=== PATIENT | female | born 1990 | race African-American/Black ===

== ENCOUNTER 2025-04-12 17:10 | Emergency (ER) | payer BC ==
[~2025-04-12] VITALS: Ht 165.1 cm; Wt 66.2 kg
[2025-04-12] MEDS: KETOROLAC TROMETHAMINE 15 MG/ML VIAL IM ONE (20:00)
[2025-04-12 20:29] LABS: PLATELET COUNT (AUTO) 210 K/uL (150-450); RED BLOOD CELL COUNT(AUTO) 4.43 MIL/uL (4.0-5.2); RED CELL DISTRIBUTION WIDTH 12.1 % (11.5-15.0); WHITE BLOOD COUNT (AUTO) 10.1 K/uL (4.3-11.0)
[2025-04-12 20:32] LABS: CALCIUM, SERUM 8.8 mg/dL (8.5-10.1); CREATININE 0.9 mg/dL (0.6-1.3); SODIUM SERUM 137.0 mmol/L (136-145); UREA NITROGEN, BLOOD 10.0 mg/dL (7-18)
[2025-04-12 20:33] LABS: APPEARANCE,URINE CLEAR (CLEAR); BLOOD, URINE Trace-intact Ery/uL (NEGATIVE); LEUKOCYTE ESTERASE ,URINE Negative (NEGATIVE); UGLUCOSE Negative (NEGATIVE)
[2025-04-12 20:36] LABS: INR 1.16 (0.91-1.10)
[2025-04-12 20:37] LABS: NITRITE, URINE NEGATIVE (NEGATIVE)
[2025-04-12 20:38] LABS: ASPARTATE AMINOTRANSFERASE 17.0 U/L (15-37); TOTAL PROTEIN, SERUM 8.0 g/dL (6.4-8.2)
[2025-04-12 20:38] LABS: ADD URINE CULTURE NO; SQUAMOUS EPITHELIAL CELL,UR Few /HPF (None Seen)
[2025-04-12] MEDS ORDERED: IOHEXOL-300 100 ML VIAL IV ONE (20:44)
[2025-04-12] MEDS ORDERED: IV NS 0.9% 250 ML IV ONE (20:45)
[2025-04-12] MEDS ORDERED: CT SWABBABLE VALVE TRANS SET 1 EA INFUS.SET MC ONE (20:45)
[2025-04-12] MEDS ORDERED: HYDR-3972 PO (21:12)
[2025-04-12] MEDS ORDERED: HYDR-4209 PO (21:13)
[2025-04-12 21:39] VITALS: BP 122/70; TEMP 99.2; O2SAT 99
== END 2025-04-12 21:40 | disposition home or self-care (01) ==
LOC: ER 17:16
DX: O26.899 Other specified pregnancy related conditions, unspecified trimester (principal); R10.2 Pelvic and perineal pain; Z32.01 Encounter for pregnancy test, result positive; Z3A.00 Weeks of gestation of pregnancy not specified
CPT/HCPCS: 36415; 76856-TC; 80048-TC; 80076-TC; 81001; 84702-TC; 85025-TC; 85730-TC; J7050; Q9967